=== PATIENT | male | born 1990 | race Caucasian/White ===

== ENCOUNTER 2016-06-28 13:58 | Emergency (ER) | payer OTHER ==
[2016-06-28] MEDS ORDERED: chlordiazePOXIDE 25 MG CAP PO ONE (14:13)
[2016-06-28] MEDS ORDERED: NS 1,000 ML IV ONE (14:13)
[2016-06-28] MEDS ORDERED: LORazepam 2 MG/ML INJ IVP ONE (14:14)
--- NOTE | 2016-06-28 14:17 | EDPHY ---
H & P Stated Complaint: Witnessed Seizure possibly r/t ETOH withdrawl Source: Patient Exam Limitations: No limitations - Personal History Current Tetanus/Diphtheria Vaccine: Yes Current Tetanus Diphtheria and Acellular Pertussis (TDAP): Yes - Medical/Surgical History Hx Asthma: No Hx Chronic Respiratory Disease: No Hx Diabetes: No Hx Cardiac Disease: No Hx Renal Disease: No Hx Cirrhosis: No Hx Alcoholism: No Hx HIV/AIDS: No Hx Splenectomy or Spleen Trauma: No Other PMH: Denies - Social History Smoking Status: Current some day smoker Time Seen by Provider: 06/28/16 14:14 HPI/ROS: CHIEF COMPLAINT: Witnessed seizure, scalp laceration, alcohol withdrawal HISTORY OF PRESENT ILLNESS: The patient presents to the ED after a witnessed seizure. The patient reportedly fell from standing backwards striking his head sustaining a 3 cm laceration. It was witnessed by his mother. The patient had a mild postictal state. Since that time he has regained his orientation and is currently alert and oriented x4. Patient does report that recently cut back on what sounds to be a fairly significant pattern of alcohol abuse reporting up to 1 L a day in binge drinking which stopped 3 days ago. The patient endorses symptoms of tremor, tachycardia and nausea all consistent with alcohol withdrawal. REVIEW OF SYSTEMS: A comprehensive 10 point review of systems is otherwise negative aside from elements mentioned in the history of present illness. (Wili Morris) - Physical Exam Exam: General Appearance: Alert, tremulous, no acute distress Head: Normocephalic, 3 cm occipital scalp laceration noted, no bony crepitus, no hematoma Neck: No midline tenderness, normal flexion, extension, axial rotation noted without pain Eyes: Pupils equal and round no pallor or injection ENT, Mouth: Mucous membranes moist Respiratory: There are no retractions, lungs are clear to auscultation Cardiovascular: Tachycardic Gastrointestinal: Abdomen is soft and nontender, no masses, bowel sounds normal Neurological: Tremulous, alert and oriented x4, normal motor and sensory function Skin: Warm and dry, no rashes Musculoskeletal: Neck is supple nontender Extremities: symmetrical, full range of motion (Wili Morris) Constitutional: Initial Vital Signs Temperature (C) 37.1 C 06/28/16 13:58 Heart Rate 146 H 06/28/16 13:58 Respiratory Rate 18 06/28/16 13:58 Blood Pressure 136/79 H 06/28/16 13:58 O2 Sat (%) 96 06/28/16 13:58 O2 Delivery Mode Room Air Allergies/Adverse Reactions: No Known Allergies Allergy (Unverified 06/28/16 14:11) Home Medications: Medication Instructions Recorded NK [No Known Home Meds] 06/28/16 Medical Decision Making Procedures: Procedure: Laceration repair. Verbal consent was obtained from the patient. The 3 cm stellate shaped laceration on the occiput was anesthetized using 1% lidocaine with epinephrine. The wound was carefully irrigated by the emergency department train electronic technician. Next, the wound was prepped and draped in sterile fashion and explored to its base with a gloved finger. There were no deep structures involved. No tendon injury was identified. No vascular injury was identified. No foreign bodies were identified. The wound was repaired with 9. Ivy. The wound repair was simple. The procedure was performed by myself. Tetanus and antibiotic status were addressed. (Cristine Samuels) ED Course/Re-evaluation: The patient presents to the ED after a likely alcohol withdrawal seizure complicated by scalp laceration. The patient arrives by paramedics. He received 1 mg of Versed EN route. In the ED the patient is noted to to have ongoing tachycardia and tremor. He had an IV established. He received 50 mg of Librium and 1 mg of IV Ativan. The patient received 1 L of normal saline. While the patient does have a scalp laceration, he has no clinical evidence of a skull fracture. The patient denies headache and is currently alert and oriented x4. The patient did have his scalp laceration repaired by the nurse practitioner. I re-evaluated the patient at 3:40 p.m.. He continues to deny headache. His neurologic examination is normal. He has no acute complaints. The patient would like to be [facility] for further assistance with his alcohol withdrawal. The patient will be taken to the [facility] by his mother. He understands return to the ED immediately for severe headache, vomiting or other concerns. Patient has symptoms of alcohol withdrawal have improved. He has a mild tremor and slight tachycardia. He does appear appropriate for management at the detox center with their medical treatment protocol. The patient will return to the ED in 10 days for staple removal. (Wili Morris) Differential Diagnosis: Differential diagnosis considered includes alcohol withdrawal seizure, metabolic abnormality, alcohol withdrawal syndrome, intracranial hemorrhage, concussion (Wili Morris) - Data Points Laboratory Results: Laboratory Results 06/28/16 14:35 06/28/16 14:35 06/28/16 06/28/16 14:35 14:35 WBC 7.39 10^3/uL 10^3/uL (3.80-9.50) RBC 5.28 10^6/uL 10^6/uL (4.40-6.38) Hgb 17.1 g/dL g/dL (13.7-17.5) Hct 47.2 % % (40.0-51.0) MCV 89.4 fL fL (81.5-99.8) MCH 32.4 pg pg (27.9-34.1) MCHC 36.2 g/dL g/dL (32.4-36.7) RDW 11.9 % % (11.5-15.2) Plt Count 186 10^3/uL 10^3/uL (150-400) MPV 9.1 fL fL (8.7-11.7) Neut % (Auto) 82.4 % H % (39.3-74.2) Lymph % (Auto) 10.4 % L % (15.0-45.0) [place] % (Auto) 6.0 % % (4.5-13.0) Eos % (Auto) 0.3 % L % (0.6-7.6) Baso % (Auto) 0.4 % % (0.3-1.7) Nucleat RBC Rel Count 0.0 % % (0.0-0.2) Absolute Neuts (auto) 6.09 10^3/uL 10^3/uL (1.70-6.50) Absolute Lymphs (auto) 0.77 10^3/uL L 10^3/uL (1.00-3.00) Absolute Monos (auto) 0.44 10^3/uL 10^3/uL (0.30-0.80) Absolute Eos (auto) 0.02 10^3/uL L 10^3/uL (0.03-0.40) Absolute Basos (auto) 0.03 10^3/uL 10^3/uL (0.02-0.10) Absolute Nucleated RBC 0.00 10^3/uL 10^3/uL (0-0.01) Immature Gran % 0.5 % % (0.0-1.1) Immature Gran # 0.04 10^3/uL 10^3/uL (0.00-0.10) Sodium 136 mEq/L mEq/L (134-144) Potassium 4.5 mEq/L mEq/L (3.5-5.2) Chloride 103 mEq/L mEq/L (97-110) Carbon Dioxide 19 mEq/l L mEq/l (22-31) Anion Gap 14 mEq/L mEq/L (8-16) BUN 13 mg/dL mg/dL (7-23) Creatinine 0.8 mg/dL mg/dL (0.7-1.3) Estimated GFR > 60 Glucose 188 mg/dL H mg/dL (70-100) Calcium 9.8 mg/dL mg/dL (8.5-10.4) Medications Given: Discontinued Medications Chlordiazepoxide HCl (Librium) 50 mg PO EDNOW ONE Stop: 06/28/16 14:14 Last Admin: 06/28/16 14:41 Dose: 50 mg Sodium Chloride (Ns) 1,000 mls @ 0 mls/hr IV ONCE ONE PRN Reason: Wide Open Stop: 06/28/16 14:14 Last Admin: 06/28/16 14:41 Dose: 1,000 mls Lorazepam (Ativan Injection) 1 mg IVP EDNOW ONE Stop: 06/28/16 14:15 Last Admin: 06/28/16 14:41 Dose: 1 mg Departure - Departure Disposition: Home, Routine, Self-Care Clinical Impression: Scalp laceration, Alcohol withdrawal seizure, Alcohol withdrawal Condition: Good Instructions: Alcohol Withdrawal (ED) Additional Instructions: 1. No driving, dangerous activities such as riding a ski lift, swimming in a pool or other behavior that could put you or someone else at risk in the event of a recurrent seizure. You will need to be cleared by a neurologist to resume these activities. 2. Please return to the ED for recurrent seizure, headache, numbness, weakness, altered mental status or other concerns. 3. Please follow up with neurologist you have been referred to this week to schedule a follow-up appointment. 4. Return to the ED in 10 days for staple removal. 5. The [facility] will be happy to keep an eye on you today for symptoms of alcohol withdrawal. You have been provided their contact information. Referrals: Cuba Torres MD [Medical Doctor] - As per Instructions [facility] [Outside] - As per Instructions
[2016-06-28 14:54] LABS: % IMMATURE GRANULYOCYTES 0.5 % (0.0-1.1); ABSOLUTE IMMATURE GRANULOCYTES 0.04 10^3/uL (0.00-0.10); ADD DIFF? NO; ADD MORPH? NO; ADD SCAN? NO; ATYPICAL LYMPHOCYTE FLAG 10 (0-99); FRAGMENT RBC FLAG 0 (0-99); HEMATOCRIT 47.2 % (40.0-51.0); HEMOGLOBIN 17.1 g/dL (13.7-17.5); LEFT SHIFT FLG 0 (0-99); LIPEMIA HEMOLYSIS FLAG 90 (0-99); MEAN CELL HEMOGLOBIN 32.4 pg (27.9-34.1); MEAN CELL HEMOGLOBIN CONCENTR. 36.2 g/dL (32.4-36.7); MEAN CELL VOLUME 89.4 fL (81.5-99.8); MEAN PLATELET VOLUME 9.1 fL (8.7-11.7); PLATELET CLUMPS FLAG 0 (0-99); PLATELET COUNT 186 10^3/uL (150-400); RED BLOOD CELL COUNT 5.28 10^6/uL (4.40-6.38); RED CELL DISTRIBUTION WIDTH 11.9 % (11.5-15.2)
[2016-06-28 15:23] VITALS: O2SAT 95
[2016-06-28 15:25] LABS: ANION GAP 14 mEq/L (8-16); CALCIUM 9.8 mg/dL (8.5-10.4); CARBON DIOXIDE 19 mEq/l (22-31); CHLORIDE 103 mEq/L (97-110); CREATININE 0.8 mg/dL (0.7-1.3); GLOMERULAR FILTRATION RATE > 60; GLUCOSE 188 mg/dL (70-100); POTASSIUM 4.5 mEq/L (3.5-5.2); SODIUM 136 mEq/L (134-144)
[2016-06-28] MEDS ORDERED: CHLORDIAZEPOXIDE 25MG PREPK#6 BTL TAKEHOME ONE (15:49)
[2016-06-28 16:05] LABS: COLOR YELLOW; LEUKOCYTE ESTERASE,URINE NEGATIVE (NEGATIVE); NITRITE,URINE NEGATIVE (NEGATIVE)
[2016-06-28 16:07] LABS: MUCUS 4+ /lpf (NONE-1+)
[2016-06-28 16:10] LABS: BACTERIA NONE SEEN /hpf (NONE SEEN)
[2016-06-28 16:13] VITALS: BP 147/79; PULSE 101; RESP 18; TEMP 98.2
== END 2016-06-28 16:11 | disposition home or self-care (01) ==
PROC: 0HQ0XZZ Repair Scalp Skin, External Approach (ICD-10-PCS; principal; 2016-06-28)
DX: S01.01XA Laceration without foreign body of scalp, initial encounter (principal); F10.239 Alcohol dependence with withdrawal, unspecified; R56.9 Unspecified convulsions; F17.200 Nicotine dependence, unspecified, uncomplicated; W18.09XA Striking against other object with subsequent fall, initial encounter
CPT/HCPCS: 96374; J2060